=== PATIENT | male | born 1975 | race African-American/Black ===

== ENCOUNTER → 2017-10-24 | Emergency (ER) | payer MEDICAID ==
[~2017-10-24] VITALS: Ht 180.3 cm; Wt 113.4 kg
--- NOTE | 2017-10-25 06:56 | EKG ---
[facility] [address] [place] [address] Signed Normal sinus rhythm Nonspecific ST and T wave abnormality Abnormal ECG No previous ECGs available Confirmed by RICKY MCCOLLUM MD ([id number] on 10/25/2017 6:56:05 AM Electronically Signed By: RICKY MCCOLLUM MD 10/25/17 0656 PATIENT NAME: ARMINDA ROSADO Electrocardiogram DATE OF : 71 PHYSICIAN: RICKY MCCOLLUM MD REPORT #: [id number] REPORT IS CONFIDENTIAL AND NOT TO BE RELEASED WITHOUT AUTHORIZATION
== END ==
LOC: ED 18:41
DX: F10.10 Alcohol abuse, uncomplicated (principal); F17.200 Nicotine dependence, unspecified, uncomplicated; Y90.6 Blood alcohol level of 120-199 mg/100 ml
CPT/HCPCS: 80053; 81001; 84484; 85025; 87088; 93005; 93010; 96374; 99284; G0480

== ENCOUNTER 2017-10-27 17:14 | Emergency (ER) | payer MEDICAID ==
[~2017-10-27] VITALS: Ht 180.3 cm; Wt 113.4 kg
== END 2017-10-27 19:50 | disposition home or self-care (01) ==
LOC: ED 17:14
DX: R11.10 Vomiting, unspecified (principal); R19.7 Diarrhea, unspecified; F17.200 Nicotine dependence, unspecified, uncomplicated
CPT/HCPCS: 80053; 81001; 83690; 85025; 96361; 96374; 99283; J2405; J7030